=== PATIENT | male | born 1965 | race Two or more races ===

== ENCOUNTER → 2024-03-17 | Emergency (ER) | payer OTHER ==
[~2024-03-17] VITALS: Ht 167.6 cm; Wt 75.7 kg
[~2024-03-17] MED LIST: MECL-159 PO; MECLIZINE HCL 25 MG TABLET ONE
[2024-03-17] MEDS: IV NS 0.9% 1,000 ML BAG IV ONE (16:26)
[2024-03-17] MEDS: MECLIZINE HCL 12.5 MG TABLET PO ONE (16:27)
[2024-03-17 17:04] LABS: BASOPHILS % (AUTO) 0.8 % (0.0-2.0); EOSINOPHILS # (AUTO) 0.2 K/uL (0.0-0.7); EOSINOPHILS % (AUTO) 3.4 % (0.0-6.0); HEMATOCRIT 41 % (39-51); HEMOGLOBIN 14.3 g/dL (13.5-17.5); LYMPHOCYTES # (AUTO) 1.2 K/uL (0.8-4.8); LYMPHOCYTES % (AUTO) 22.1 % (20.0-44.0); MEAN CORPUSCULAR HEMOGLOBIN 31 PG (26.0-33.0); MEAN CORPUSCULAR HGB CONC 35 g/dl (31.0-36.0); MEAN CORPUSCULAR VOLUME 90 fL (80-96); MONOCYTES # (AUTO) 0.5 K/uL (0.1-1.30); MONOCYTES % (AUTO) 8.4 % (2.0-12.0); NEUTROPHILS # (AUTO) 3.6 K/uL (1.8-8.9); NEUTROPHILS % (AUTO) 65.3 % (43.0-81.0); PLATELET COUNT (AUTO) 233 K/uL (150-450); RED BLOOD CELL COUNT(AUTO) 4.61 MIL/uL (4.5-6.0); RED CELL DISTRIBUTION WIDTH 12.9 % (11.5-15.0); WHITE BLOOD COUNT (AUTO) 5.5 K/uL (4.3-11.0)
[2024-03-17 18:22] LABS: CALCIUM, SERUM 8.6 mg/dL (8.5-10.1); CREATININE 0.9 mg/dL (0.6-1.3); POTASSIUM 3.4 mmol/L (3.5-5.1)
[2024-03-17 20:00] VITALS: BP 169/95; TEMP 98; O2SAT 98
== END ==
LOC: ER 15:57
DX: I16.0 Hypertensive urgency (principal); R73.9 Hyperglycemia, unspecified; H81.399 Other peripheral vertigo, unspecified ear; R42 Dizziness and giddiness; R11.2 Nausea with vomiting, unspecified
CPT/HCPCS: 99284; 96360; 70450; 93005; 85025; 80048; 36415; 82962; J8597; J7030